=== PATIENT | male | born 1940 | race Caucasian/White ===

== ENCOUNTER 2018-04-21 06:40 | Observation (INO) | payer MEDICARE ==
[~2018-04-21] VITALS: Ht 185.4 cm; Wt 96.8 kg
[2018-04-21] MEDS ORDERED: SODIUM CHLORIDE 0.9% 1,000 ML IV SCH (07:04)
[2018-04-21 07:05] VITALS: BP 145/90
[2018-04-21] MEDS ORDERED: AMIO200T42 PO (07:19)
[2018-04-21] MEDS ORDERED: APIX5TAB PO (07:19)
[2018-04-21] MEDS ORDERED: ATOR10TA9 PO (07:19)
[2018-04-21] MEDS ORDERED: HEPARIN 1,000 UNITS/ML, 10ML ONE (07:46)
[2018-04-21] MEDS ORDERED: LIDOCAINE-MPF 2% ,5ML ONE (07:46)
[2018-04-21] MEDS ORDERED: PROTAMINE SULFATE 10 MG/ML, 5ML ONE (07:46)
[2018-04-21] MEDS ORDERED: FENTANYL PF 250 MCG/5ML ONE (07:52)
[2018-04-21] MEDS ORDERED: MIDAZOLAM 1 MG/ML, 2ML ONE (07:52)
[2018-04-21] MEDS ORDERED: ROCURONIUM 10 MG/ML,10ML ONE (08:06)
[2018-04-21] MEDS ORDERED: PROPOFOL 10 MG/ML, 20ML ONE (08:06)
[2018-04-21] MEDS ORDERED: ONDANSETRON 2MG/ML, 2ML ONE (08:06)
[2018-04-21] MEDS ORDERED: PHENYLEPHRINE 10 MG/ML ONE (08:06)
[2018-04-21] MEDS ORDERED: GLYCOPYRROLATE 0.2MG/1ML, 5ML ONE (08:06)
[2018-04-21] MEDS ORDERED: DEXAMETHASONE 4 MG/ML, 1ML ONE (08:06)
[2018-04-21] MEDS ORDERED: SUCCINYLCHOLINE 20 MG/ML, 10ML ONE (08:06)
[2018-04-21] MEDS ORDERED: NEOSTIGMINE 1 MG/ML, 10ML ONE (08:06)
[2018-04-21] MEDS ORDERED: ALBUTEROL SULFATE 2.5 MG/3 ML NPPB PRN (10:30)
[2018-04-21] MEDS ORDERED: PROMETHAZINE 12.5 MG SUPP PR PRN (10:30)
[2018-04-21] MEDS ORDERED: PROMETHAZINE 25 MG/ML, 1ML IV PRN (10:30)
[2018-04-21] MEDS ORDERED: ACETAMINOPHEN 325 MG TABLET PO PRN ×2 (10:30)
[2018-04-21] MEDS ORDERED: ONDANSETRON 2MG/ML, 2ML IV PRN (10:30)
[2018-04-21] MEDS ORDERED: MIDAZOLAM 1 MG/ML, 2ML IV PRN (10:30)
[2018-04-21] MEDS ORDERED: OXYcodone 5 MG/5 ML ORAL.SOL UDC PO PRN (10:30)
[2018-04-21] MEDS ORDERED: ZOLPIDEM 5MG TABLET PO PRN (10:30)
[2018-04-21] MEDS ORDERED: HYDROmorphone 1 MG/ML, 1ML IV PRN (10:30)
[2018-04-21] MEDS ORDERED: LABETALOL 5MG/ML, 20ML IV PRN (10:30)
[2018-04-21] MEDS ORDERED: ONDANSETRON ODT 8 MG PO PRN (10:30)
[2018-04-21] MEDS: APIXABAN 5 MG TABLET PO SCH ×2 (10:30→20:34)
[2018-04-21] MEDS ORDERED: hydrALAzine 20 MG/ML, 1ML IV PRN (10:30)
[2018-04-21] MEDS ORDERED: MEPERIDINE/PF 25MG/0.5ML IVPush PRN (10:30)
[2018-04-21] MEDS ORDERED: FENTANYL PF 100 MCG/2ML IV PRN (10:30)
[2018-04-21] MEDS ORDERED: OXYcodone 5 MG/5 ML ORAL.SOL UDC ONE (10:50)
[2018-04-21] MEDS ORDERED: APIXABAN 5 MG TABLET ONE (10:50)
[2018-04-21 19:18] VITALS: BP 127/67
[2018-04-21] MEDS ORDERED: ATORVASTATIN 10 MG TABLET PO SCH (21:00)
[2018-04-22 00:49] VITALS: BP 124/65
[2018-04-22 07:45] VITALS: BP 146/68
[2018-04-22] MEDS ORDERED: AMIODARONE 200 MG TABLET PO SCH (09:00)
[2018-04-22] MEDS: APIXABAN 5 MG TABLET PO SCH (09:00)
== END 2018-04-22 16:15 | disposition home or self-care (01) ==
LOC: CACL 06:40 → ORIP 10:02 → 5SO 11:32 → DCLOUNGE 04-22 15:55
PROVIDERS: ADMIT Internal Medicine Cardiovascular Disease; ATTEND Internal Medicine Cardiovascular Disease
DX: I48.91 Unspecified atrial fibrillation (principal); I48.92 Unspecified atrial flutter
CPT/HCPCS: 85347; 93308; 93613; 93655; 93656; 93662; C1730; C1731; C1732; C1759; C1766; C1893; C1894; G0378; J0330; J1100; J2250; J2370; J2405; J2704; J2710; J2720; J3010; J3490; J1644